=== PATIENT | female | born 1980 | race Caucasian/White ===

== ENCOUNTER 2022-06-26 20:15 | Emergency (ER) | payer OTHER ==
[~2022-06-26] VITALS: Ht 167.6 cm; Wt 96.8 kg
[2022-06-26 21:00] VITALS: BP 132/70
[2022-06-26] MEDS ORDERED: CYCLOBENZAPRINE 5MG TABLET PO ONE (21:40)
[2022-06-26] MEDS ORDERED: NAPROXEN 250 MG TAB PO ONE (21:40)
[2022-06-26] MEDS ORDERED: NAPR-837 PO (22:16)
[2022-06-26] MEDS ORDERED: CYCL5TAB PO (22:16)
[2022-06-26 22:22] VITALS: O2SAT 98
== END 2022-06-26 22:43 | disposition home or self-care (01) ==
LOC: M ED 20:15
DX: Z04.1 Encounter for examination and observation following transport accident (principal)

== ENCOUNTER → 2024-01-15 | Outpatient (CLI) | payer OTHER ==
[~2024-01-15] MED LIST: CYCL5TAB PO; NAPR-837 PO
[2024-01-15 17:34] LABS: ALKALINE PHOSPHATASE 39 U/L (46-116); ALT/SGPT 17 U/L (7.0-40); AST/SGOT < 8 U/L (<34); BILIRUBIN,TOTAL 0.8 MG/DL (0.3-1.2); BLOOD UREA NITROGEN 10 MG/DL (9-23); CALCIUM LEVEL 9.3 MG/DL (8.5-10.1); CARBON DIOXIDE LEVEL 26 MMOL/L (20-31); CHLORIDE LEVEL 106 MMOL/L (98-107); CREATININE FOR GFR 0.96 MG/DL (0.55-1.30); FREE T4 1.26 NG/DL (0.89-1.76); GLOMERULAR FILTRATION RATE > 60.0 (>58); GLUCOSE, FASTING 77 MG/DL (60-100); POTASSIUM SERUM 3.7 MMOL/L (3.5-5.1); SODIUM LEVEL 138 MMOL/L (136-145); THYROID STIMULATING HORMONE 0.849 uIU/ML (0.55-4.78); TOTAL PROTEIN 7.3 G/DL (5.7-8.2)
== END ==
LOC: M WUC 14:31
PROVIDERS: ATTEND Registered Nurse
DX: E66.09 Other obesity due to excess calories (principal); Z79.899 Other long term (current) drug therapy